=== PATIENT | female | born 1985 | race Caucasian/White ===

== ENCOUNTER 2017-08-18 09:40 | Emergency (ER) | payer MEDICAID ==
[~2017-08-18 09:40] MED LIST: CYCLOBENZAPRINE5 M1 PO; IBUPAIN-200200 MG PO; NORCO 325 MG-51 TA1 PO; NORCO 325 MG-51 TAB PO; PERCOCET 325 MG1 TA2 PO; PRILOSEC 20MG20 MG PO; TRAZODONE HCL100 MG PO; TYLENOL 500MG500 MG PO; TYLENOL 650MG650 M2 PO
[2017-08-18] MEDS ORDERED: BUSPIRONE HCL7.5 MG PO (09:55)
[2017-08-18 10:37] LABS: EOS # 0.1 (0.04-0.40); EOS % 0.7 % (1.0-5.0); HEMATOCRIT 45.3 % (37.0-47.0); HEMOGLOBIN 15.3 g/dL (12.5-16.0); LYMPH# 2.5 (1.50-4.00); MEAN CELL VOLUME 87 fl (78-100); MEAN CORPUSCULAR HEMOGLOBIN 29 pg (27-31); MEAN CORPUSCULAR HGB CONC 34 g/dL (33-37); MEAN PLATELET VOLUME 9.7 fl (7.4-10.4); MONO # 0.8 (0.20-0.80); NEU # 3.9 (1.40-6.50); PLATELET COUNT 265 K/mm3 (130-400); RED BLOOD COUNT 5.21 M/mm3 (4.10-5.30); RED CELL DISTRIBUTION WIDTH 12.4 % (11.5-14.5); WHITE BLOOD COUNT 7.3 K/mm3 (4.8-10.8)
[2017-08-18 10:48] LABS: BUN/CREATININE RATIO 10.1 (6.0-26.0); POTASSIUM 3.9 mmol/L (3.6-5.0)
[2017-08-18] MEDS ORDERED: XANAX0.5 M1 PO (11:25)
[2017-08-18 11:38] VITALS: BP 148/99
== END 2017-08-18 11:39 | disposition home or self-care (01) ==
LOC: ED 09:40
PROVIDERS: Internal Medicine
DX: F41.9 Anxiety disorder, unspecified (principal); L27.1 Localized skin eruption due to drugs and medicaments taken internally; T43.595A Adverse effect of other antipsychotics and neuroleptics, initial encounter; F17.210 Nicotine dependence, cigarettes, uncomplicated